=== PATIENT | male | born 1970 | race Caucasian/White ===

== ENCOUNTER 2016-04-11 00:12 | Inpatient (IN) | payer MEDICARE, OTHER ==
[~2016-04-11] VITALS: Ht 177.8 cm; Wt 89.3 kg
[2016-04-11 01:00] VITALS: BP 146/87; PULSE 79; RESP 18; TEMP 98; O2SAT 96
[2016-04-11] MEDS ORDERED: ACETAMINOPHEN 325 MG TAB PO PRN (01:15)
[2016-04-11] MEDS ORDERED: LORazepam 1 MG TAB PO PRN ×2 (01:15→08:15)
[2016-04-11] MEDS ORDERED: ALUMINUM/MAGNESIUM/SIMETH 30 ML CUP PO PRN (01:15)
[2016-04-11] MEDS ORDERED: MAGNESIUM HYDROXIDE SUSP 30 ML CUP PO PRN (01:15)
[2016-04-11] MEDS ORDERED: LORazepam 2 MG/ML VIAL IM PRN ×5 (01:15→08:15)
[2016-04-11 06:15] VITALS: BP 146/87; PULSE 84; RESP 20; TEMP 98.1; O2SAT 98
[2016-04-11] MEDS ORDERED: FLUMAZENIL 1 MG/10 ML VIAL IV PUSH PRN (08:15)
[2016-04-11] MEDS ORDERED: LORazepam 2 MG TAB PO PRN (08:15)
[2016-04-11] MEDS ORDERED: THIAMINE HCL 100 MG TAB PO SCH (09:00)
[2016-04-11] MEDS ORDERED: FOLIC ACID 1 MG TAB PO SCH (09:00)
[2016-04-11] MEDS ORDERED: FOLI1TAB4 PO (09:40)
[2016-04-11] MEDS ORDERED: VITA100T2 PO (09:40)
--- NOTE | 2016-04-11 10:31 | MH ---
cc: SEMAJ MEJIA MD DATE OF ADMISSION: 04/11/2016 ADMITTING DIAGNOSIS 1. Alcohol abuse with intoxication, F10.120. 2. History of psychotic illness, presently stable LEGAL STATUS The patient is capacitated to consent for admission and medications. The patient is presently declining psychiatric admission and so will be discharged as he does not meet criteria for involuntary psychiatric hospitalization. HISTORY OF PRESENT ILLNESS Mr. Kelly is a 45-year-old male with a reported history of schizoaffective disorder that he questions as he has been reportedly stable for some time off of medications, who presents in transfer from [facility] under a [place] Act by law enforcement alleging that the patient was observed cursing out loud to himself and being aggressive towards others by cursing at them and yelling at children. The police apparently had to taser the patient to subdue him. On arrival at the outside hospital ER the patient was found to have a significantly elevated alcohol level. Reviewing our electronic medical record, it appears this is this patient's first visit to [place]. Records from [facility] were reviewed. The patient is seen and examined with counselor. Chart reviewed. Case discussed with nurse on the inpatient psychiatric unit. On my examination today, the patient is clinically sober. He denies any suicidal or homicidal ideation on direct questioning. He says that he was at a motel to relax and had been drinking a pint of whiskey. He says that he had his door open and was doing some work in a notebook. He says that some other patrons at the motel misinterpreted him reading from his notebook as verbally aggressive behavior and called the police. He said that the police were aggressive and disrespectful and he takes issue with being tasered as he does not feel it was warranted. The patient denies any audiovisual hallucinations. I can elicit no delusional beliefs including but not limited to paranoia, thought insertion or withdrawal or grandiosity or ideas of reference. He denies any issues with low mood or elevated mood, nor can I elicit any depressive or hypomanic/manic symptoms. He reports that he is sleeping and eating well. The remainder of the psychiatric ROS is negative. The patient is requesting discharge from the inpatient psychiatric unit today. PAST PSYCHIATRIC HISTORY The patient reports a prior diagnosis of schizoaffective disorder and says that he was previously maintained on Navane, Xanax and trazodone, although he has been off of medications reportedly since 2008 without incident. He denies a history of outpatient or inpatient psychiatric treatment. He denies a history of suicide attempts. FAMILY HISTORY The patient denies a family history of serious mental illness, substance use disorder or suicide, but is somewhat unsure of his family history as he was apparently raised by his cousin's family. CHEMICAL DEPENDENCY HISTORY The patient reports that he drinks about a pint of whiskey daily. He denies a history of blackouts, DTs or seizures. He denies any consequences from his drinking and says that he attends AA meetings on occasion. No current withdrawal symptoms. Denies other substance use. Alcohol level at the outside hospital was 171 and urine toxicology was negative. SOCIAL HISTORY The patient denies a history of physical, verbal or sexual abuse. He denies a history of violence or violent crime. He does say he has accrued some trespassing charges. He is single with three children and grandchildren. He is an [employer] . No reported PTSD symptoms. He is disabled and gets about $1600.00 a month. He denies any access to guns or firearms. PAST MEDICAL HISTORY The patient denies any medical issues. MEDICATIONS The patient denies taking any medications. ALLERGIES No known allergies. REVIEW OF SYSTEMS No reported headache, vision or hearing changes, chest pain, shortness of breath, bowel or bladder issues. No other physical complaints. PHYSICAL EXAMINATION A physical examination was completed at the outside hospital and the patient was medically cleared for transfer to [place]. On my examination today, the patient appears to be in no acute physical distress. No abnormal motor movements noted. In particular no hand tremor, no diaphoresis, no mydriasis, no other signs of alcohol withdrawal. Steady gait and station. Labs and vital signs were reviewed. The patient's temperature presently is 98.1, pulse 84 per minute, respiratory rate 20 per minute, blood pressure 146/87, and pulse oximetry is 98% on room air. Alcohol level at outside hospital was elevated and toxicology was negative as noted above. CMP is significant for mild hypernatremia at 147 but is otherwise unremarkable. CBC is fairly unremarkable. Urinalysis has moderate blood. MENTAL STATUS EXAMINATION The patient is in a hospital gown. He is fairly well-groomed and maintaining basic hygiene. He is awake and alert and oriented x3. No evidence of delirium. No abnormal motor movements noted. Speech is within normal limits for rate, tone and volume. Language and fund of knowledge seem average for age. Mood is fair and affect is blunted. Thought process is somewhat circumstantial but there is no loosening of associations. No evident delusions. Denies audiovisual hallucinations and does not appear internally stimulated. Denies suicidal or homicidal ideation. Insight and judgment are fair. ASSESSMENT AND PLAN This is a 45-year-old male with psychiatric history as detailed above who presents under a [place] Act in transfer from an outside hospital. The patient did have significant alcohol level on presentation at the outside hospital and I suspect this is what was driving the circumstances of his Szym[place]ki Act. I can presently detect no unstable mood, anxiety or psychotic disorder in this patient at this time. He is denying suicidal or homicidal ideation. He appears to be able to attend to his basic needs. Consequently, the patient does not meet Szym[place] Act criteria after weighing the acute, chronic, and protective factors. He is presently declining voluntary psychiatric admission and so since I have no basis to retain him involuntarily I will arrange for his discharge today in stable condition. He has agreed to accept the psychiatric and chemical dependency referrals that we have recommended to him. He will be [facility] to [facility] condition. I have counseled the patient regarding warning signs for need to return to the psychiatric emergency room as part of a general safety plan. I have prescribed thiamine and folate on discharge. Please note this document serves also as my discharge summary. Semaj JJ /9:32 AM /10:10 AM SERVANDO
== END 2016-04-11 13:20 | disposition home or self-care (01) | DRG 897 ==
LOC: H270 00:25
PROVIDERS: ADMIT Psychiatry & Neurology Psychiatry; ATTEND Psychiatry & Neurology Psychiatry
DX: F10.120 Alcohol abuse with intoxication, uncomplicated (principal)